=== PATIENT | male | born 2000 | race Caucasian/White ===

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

== ENCOUNTER 2021-12-02 09:42 | Emergency (ER) | payer OTHER, MEDICAID, SELFPAY ==
[2021-12-02 09:43] VITALS: BP 128/75; PULSE 73; RESP 14; TEMP 36.7; O2SAT 100; BMI 22.8
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
--- NOTE | 2021-12-02 10:06 | EDS_ITS ---
HPI History of Present Illness Chief Complaint: Head Injury Narrative Narrative: Patient who denies significant past medical history presents with injury to his head, neck, and thoracic spine. He states while he was at work, he was pulling boxes, and a few of them fell on his head, neck, and upper back. He denies loss of consciousness, but states that he had ringing in his ears and saw stars for a minute, and this resolved after he sat down and drink water. He states that the boxes weighed 7 to 15 pounds and had porcelain toilet parts in it. He was able to ambulate afterwards. He presents because of the injury to those 3 areas that he mentioned. He denies any exacerbating or alleviating factors. He does not take any blood thinners. PFSH PFS Home Medications NK 08/26/19 [History Last Taken Unknown] Allergy/AdvReac Type Severity Reaction Status Date / Time No Known Allergies Allergy Verified 12/02/21 09:45 Social History Smoking Status: Current every day smoker ROS ROS ED ROS Narrative Constitutional: No fever, no chills. HEENT: No sore throat. Positive neck pain. No loss of vision. No rhinorrhea. Positive neck pain. Cardiovascular: No chest pain. No palpitations. No pedal edema. Respiratory: No cough, no shortness of breath. Abdominal: No abdominal pain. Positive nausea. No vomiting. Genitourinary: No dysuria. No hematuria. Musculoskeletal: No myalgias. No arthralgias. Upper back pain. Denies pain in the lumbar area. Neurologic: Mild headaches. Positive dizziness. No lightheadedness. No paresthesia. Skin: No rash. No change in color. Psychiatric: No depression. No anxiety. EXAM Physical Exam Narrative Exam Narrative: Afebrile. Vital signs noted. GCS 15. ABCs intact. HEENT: Normocephalic. Atraumatic. PERRL, EOMI. Neck soft and supple. No point tenderness or step off of cervical, thoracic, and lumbar spine. Cardiovascular: Regular rate and rhythm. No murmurs, rubs, or gallops appreciated. Respiratory: No tachypnea. Lungs clear to auscultation bilaterally. Gastrointestinal: Abdomen soft, nontender, with normoactive bowel sounds. No rebound or guarding. Neurological: Awake. Alert. Oriented x3. Nonfocal, nonlateralizing. Skin: No rash. Normal color. No pallor. Musculoskeletal: No pedal edema. Full range of motion extremities. Const Vital Signs: 12/02/21 09:43 Temperature 98.0 F Temperature Source Temporal Pulse Rate 73 Respiratory Rate 14 Blood Pressure 128/75 H Blood Pressure Mean 92 Pulse Ox 100 Oxygen Delivery Method Room Air MDM MDM MDM Narrative Medical decision making narrative: I do feel that the patient may have postconcussive syndrome given his reported tinnitus and mild headache, with nausea. CT imaging of the brain, C-spine, thoracic spine were obtained. There is no evidence of fracture, no hemorrhage noted on CT of the brain. At this point in time, he will be discharged immediately to the [facility] for his drug testing. He was instructed on brain rest. He will take [id number] med ications as needed. I feel he can be discharged safely home with follow-up. He was given a note to return to work tomorrow, he can have today off, the day of his injury. Disposition is discharged home in stable condition. Return instructions were reviewed. Radiography Diagnostic Testing: Clinical Impression(s) from Imaging Studies Brain CT 12/02/21 10:05 IMPRESSION: Normal unenhanced CT scan of the brain. Electronically Signed: Clay Maloney MD at 10:39 EDT , Cervical Spine CT 12/02/21 10:05 IMPRESSION: Normal unenhanced CT examination of the cervical spine. Electronically Signed: Clay Maloney MD at 10:40 EDT , Thoracic Spine CT 12/02/21 10:05 IMPRESSION: Normal unenhanced CT examination of the thoracic spine. Electronically Signed: Clay Maloney MD at 10:43 EDT , Discharge Plan Triage Chief Complaint: Head Injury ED Provider: Manas Gill Dx/Rx/DC Orders Clinical Impression: Closed head injury, Concussion, Neck contusion, Contusion of middle back wall of thorax Instructions: ED Concussion, ED Head Injury (Adult) Prescriptions: No Action NK RF: 0 Primary Care Provider: Care Physician,No Primary Referrals: Care Physician,No Primary [Primary Care Provider] - [facility] [NON-STAFF] - As soon as possible (Go to the [facility] immediately upon discharge from the ED today.) Disposition Disposition: Home, Self Care
--- NOTE | 2021-12-02 10:33 | ED.RN ---
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
== END 2021-12-02 12:13 | disposition home or self-care (01) ==
PROVIDERS: Emergency Provider Emergency Medicine; Visit Provider Emergency Medicine
DX: S06.0X0A Concussion without loss of consciousness, initial encounter (principal); S10.93XA Contusion of unspecified part of neck, initial encounter; S20.224A Contusion of middle back wall of thorax, initial encounter; W20.8XXA Other cause of strike by thrown, projected or falling object, initial encounter; Y93.89 Activity, other specified; Y99.0 Civilian activity done for income or pay; F17.200 Nicotine dependence, unspecified, uncomplicated
CPT/HCPCS: 70450; 72125; 72128; 99282

== ENCOUNTER 2021-12-03 13:43 | Outpatient (CLI) | payer OTHER, SELFPAY ==
--- NOTE | 2021-12-03 13:52 | CT_ITS ---
STUDY: CT FACIAL BONES WITHOUT CONTRAST REASON FOR EXAM: Male, 21 years old. right nare clear rhinorrhea s/p trauma RADIATION DOSAGE (If Supplied By Facility): CTDIvol = ( 25.01 ) mGy, DLP = ( 579.93 ) mGycm TECHNIQUE: The patient was scanned in a multi detector CT scanner. Sagittal and coronal images were reconstructed. Individualized dose optimization techniques were used for this CT. COMPARISON: None. FINDINGS: Normal soft tissue structures. Normal orbital george and orbital contents. Normal nasal bones and anterior nasal spine. Normal facial bones. There is no demonstrated fracture. Normal visualized paranasal sinuses. Leftward deviation of the nasal septum with apical spur. CT/Sinus/Facial Bone IMPRESSION: Normal unenhanced CT of the facial bones. Electronically Signed: Kei Flowers MD ([place]) at 14:18 EDT ,
== END 2021-12-03 23:59 | disposition home or self-care (01) ==
LOC: CT 13:50
PROVIDERS: Referring Provider Physician Assistant; Visit Provider Physician Assistant
DX: S06.0X9A Concussion with loss of consciousness of unspecified duration, initial encounter (principal); X58.XXXA Exposure to other specified factors, initial encounter
CPT/HCPCS: 70486

== ENCOUNTER 2023-03-13 08:46 | Emergency (ER) | payer MEDICAID, SELFPAY ==
[2023-03-13 08:47] VITALS: BP 118/69; PULSE 65; RESP 15; TEMP 36.2; O2SAT 100
--- NOTE | 2023-03-13 09:19 | EX.ED.UPPERE ---
HPI History of Present Illness Chief Complaint: Headache Narrative Narrative: 23-year-old male sustained a superficial laceration which is a small flap on the left forearm yesterday with a saw. He cleaned it well and he put a dressing on it. He states that when he looked at it and his girlfriend went to change the bandage he got nauseous and lightheaded. This is a typical reaction for him. There is been no active bleeding. Is been no drainage. Patient states he had his tetanus updated last year. PFSH PFS Medical History no medical history Home Medications NK 08/26/19 [History Last Taken Unknown] Allergy/AdvReac Type Severity Reaction Status Date / Time No Known Allergies Allergy Verified 12/02/21 09:45 Surgical History no surgical history Social History Smoking Status: Current every day smoker tobacco type: cigarettes ROS ROS ED Constitutional Constitutional ED: Denies chills, fever(s) or sweats Eyes Eyes: Denies blurry vision or change in vision ENT ENT ED: Denies ear pain or sore throat Cardiovascular Cardiovascular: Denies chest pain, palpitations or racing heartbeat Respiratory/Chest Respiratory/Chest: Denies cough, dyspnea or sputum Gastrointestinal Gastrointestinal: Denies abdominal pain, constipation, diarrhea, nausea or vomiting Genitourinary Genitourinary ED: Denies dysuria, hematuria or urinary frequency Musculoskeletal Musculoskeletal: Denies arthralgias, myalgias or neck pain Integumentary Reports other Details: Laceration ; Denies abscess, Abrasions or rash Neurologic Neurologic: Denies headache(s), paresthesias or weakness Psychiatric Psychiatric: Denies anxiety, depression, suicidal ideation or suicidal thoughts Endocrine Endocrinology: Denies polydipsia or polyuria EXAM Physical Exam Const Vital Signs: 03/13/23 08:47 Temperature 97.2 F L Temperature Source Temporal Pulse Rate 65 Respiratory Rate 15 Blood Pressure 118/69 Blood Pressure Mean 85 Pulse Ox 100 Oxygen Delivery Method Room Air Positive well nourished General Appearance ED: NAD HEENT Reports moist mucous membranes Eyes PERRL and EOMs intact bilaterally Resp normal respiratory effort Cardio regular rate Neuro oriented x3 and CN's II-XII intact bilaterally Psych mental status grossly normal Skin Skin Narrative: 1 cm superficial laceration. The margins are not well approximated. There is no active bleeding. Minimal tenderness to palpation. No evidence of infection. MDM MDM MDM Narrative Medical decision making narrative: Patient has a superficial laceration which occurred yesterday which is about a centimeter long. The wounds are very well approximated. Counseled the patient that this will need to heal by secondary intention. Recommended keeping clean and dry. Bacitracin and dressing. I do not think he needs any antibiotics. His tetanus is up-to-date. Return precautions discussed. Impression: 1. Superficial laceration 1 cm Discharge Plan Triage Chief Complaint: Headache ED Provider: Freeman Solis Dx/Rx/DC Orders Instructions: ED Laceration, Old: Not Sutured Prescriptions: No Action NK Primary Care Provider: Dale Ordonez Referrals: Care Physician,No Primary [Non-Staff] - Wound,Center [Non-Staff] - Disposition Disposition: Home, Self Care
== END 2023-03-13 09:27 | disposition home or self-care (01) ==
LOC: ED 09:19
PROVIDERS: Emergency Provider Student in an Organized Health Care Education/Training Program; PCP Student in an Organized Health Care Education/Training Program; Visit Provider Student in an Organized Health Care Education/Training Program
DX: S51.812A Laceration without foreign body of left forearm, initial encounter (principal); F17.210 Nicotine dependence, cigarettes, uncomplicated; X58.XXXA Exposure to other specified factors, initial encounter
CPT/HCPCS: 99282